=== PATIENT | female | born 1930 | race Caucasian/White ===

== ENCOUNTER → 2017-04-27 | Outpatient (CLI) | payer MEDICARE ==
[2017-04-27 18:59] LABS: ALBUMIN 3.7 GM/DL (3.2-5.2); ALBUMIN/GLOBULIN RATIO 1.32 (1.00-1.93); BILIRUBIN,TOTAL 0.4 MG/DL (0.2-1.0); CALCIUM LEVEL 8.9 MG/DL (8.8-10.2); CREATININE FOR GFR 1.7 MG/DL (0.55-1.02); GLOMERULAR FILTRATION RATE 30.5 (>32); TOTAL PROTEIN 6.5 GM/DL (6.4-8.2)
== END ==
LOC: M WUC 15:16
PROVIDERS: ATTEND Internal Medicine Cardiovascular Disease
DX: I48.2 Chronic atrial fibrillation (principal); I50.32 Chronic diastolic (congestive) heart failure; I34.0 Nonrheumatic mitral (valve) insufficiency

== ENCOUNTER → 2017-08-17 | Outpatient (CLI) | payer MEDICARE ==
--- NOTE | 2017-08-17 16:14 | REP ---
Renal ultrasound: The kidneys are in the low normal size range. The right kidney measures 9.9 x 4.5 x 4.0 cm. The left kidney measures 9.2 x 5.3 x 4.3 cm. Renal cortical echogenicity is normal bilaterally. There is no hydronephrosis on the right on the left. There are no renal calculi, masses or cysts on the right on the left. Atheromatous vascular calcifications are identified. Bladder ultrasound: The bladder is minimally distended and cannot be further evaluated. Impression: Essentially negative renal ultrasound except that the kidneys are in the low normal size range. Signed by Pritesh Kunz MD 08/17/2017 04:05 P
== END ==
LOC: M RAD 10:13
PROVIDERS: ATTEND Internal Medicine Nephrology
DX: N18.3 Chronic kidney disease, stage 3 (moderate) (principal); E11.22 Type 2 diabetes mellitus with diabetic chronic kidney disease; N25.81 Secondary hyperparathyroidism of renal origin

== ENCOUNTER → 2017-08-17 | Outpatient (CLI) | payer MEDICARE ==
--- NOTE | 2017-08-17 13:59 | REP ---
DIGITAL SCREENING MAMMOGRAM UNILATERAL: 08/17/2017. Clinical history: Annual screening examination. Status post left mastectomy. Right breast only today. Multiple prior studies. Findings: Standard two-view mammography performed with a right CC additional view with nipple in profile and a true right ML. The breasts are very dense. This limits the sensitivity of mammography. There are benign arterial calcifications in the right breast. Large coarse calcifications are present, of no clinical significance. Scattered small benign appearing calcifications are present of doubtful clinical significance. There is a surgical clip in the lower inner quadrant of the right breast from prior biopsy of microcalcifications. No new microcalcifications near that clip. Scattered benign calcifications without suspicious clusters. Impression: 1. BI-RADS/ACR category 2 mammogram. Benign finding(s). Routine annual screening mammography (for women over age 40). Stable exam This mammogram was interpreted with the aid of an FDA-approved computer-aided detection system. The patient states she/he had a clinical breast exam in 06/2017. The patient letter being requested is M1. Signed by Jeff Sparks MD 08/18/2017 07:52 P
== END ==
LOC: M RAD 10:17
PROVIDERS: ATTEND Family Medicine
DX: Z12.31 Encounter for screening mammogram for malignant neoplasm of breast (principal); Z90.12 Acquired absence of left breast and nipple

== ENCOUNTER → 2017-11-12 | Outpatient (CLI) | payer MEDICARE ==
[2017-11-12 17:44] LABS: ALBUMIN 3.6 GM/DL (3.2-5.2); ALBUMIN/GLOBULIN RATIO 1.33 (1.00-1.93); ALKALINE PHOSPHATASE 104 U/L (45-117); ALT/SGPT 17 U/L (12-78); ANION GAP 8 MEQ/L (8-16); AST/SGOT 12 U/L (7-37); BILIRUBIN,TOTAL 0.4 MG/DL (0.2-1.0); BLOOD UREA NITROGEN 45 MG/DL (7-18); CALCIUM LEVEL 8.9 MG/DL (8.8-10.2); CARBON DIOXIDE LEVEL 28 MEQ/L (21-32); CHLORIDE LEVEL 104 MEQ/L (98-107); CREATININE FOR GFR 1.68 MG/DL (0.55-1.30); GLOMERULAR FILTRATION RATE 30.8 (>32); GLUCOSE, FASTING 184 MG/DL (70-100); MAGNESIUM LEVEL 2.3 MG/DL (1.8-2.4); SODIUM LEVEL 140 MEQ/L (136-145); TOTAL PROTEIN 6.3 GM/DL (6.4-8.2)
[2017-11-12 17:48] LABS: POTASSIUM SERUM 5.5 MEQ/L (3.5-5.1)
== END ==
LOC: M WUC 14:33
DX: I50.32 Chronic diastolic (congestive) heart failure (principal); I48.2 Chronic atrial fibrillation
CPT/HCPCS: 83735

== ENCOUNTER 2017-11-19 07:34 | Day surgery (SDC) | payer MEDICARE ==
[~2017-11-19 07:34] MED LIST: PHENYLEPHRINE 2.5% OPHTH SOL 2ML OD; PROPARACAINE 0.5% OPHTH SOL 15ML OD
[2017-11-19] MEDS: OFLOXACIN 0.3 % (OCUFLOX) OPTH SOL 5ML OD ×2 (08:06)
[2017-11-19] MEDS: TROPICAMIDE 1% OPHTH SOLN 2ML OD ×2 (08:06)
[2017-11-19] MEDS ORDERED: fentaNYL 100 MCG/2 ML INJECTION (J3010) As Ordered ×2 (08:56)
[2017-11-19] MEDS ORDERED: MIDAZOLAM INJ 2 MG/2 ML VIAL (J2250) As Ordered ×2 (08:56)
[2017-11-19] MEDS: POVIDONE-IODINE 5% OPHTH PREP SOL 30ML As Ordered ×2 (09:28)
[2017-11-19] MEDS: BALANCED SALT IRRIGATION SOLUTION 500ML BAG (FOR OR EYE MACHINE) As Ordered ×2 (09:28)
[2017-11-19] MEDS: ACETYLCHOLINE OPHTH SOLN 1% 2ML (MIOCHOL-E) As Ordered ×2 (09:28)
[2017-11-19] MEDS: DUOVISC (0.50ML VISCOAT/0.55ML PROVISC) OPHTH KIT As Ordered ×2 (09:28)
[2017-11-19] MEDS: TRYPAN BLUE 0.06 % 2.25 ML OPHTH SYR (VISIONBLUE) As Ordered ×2 (09:29)
[2017-11-19] MEDS: LIDOCAINE 0.75%/EPINEPHRINE 0.025% IN BSS 1ML SYR INTRACAMERAL (OR ONLY) As Ordered (09:29)
== END 2017-11-19 10:25 | disposition home or self-care (01) ==
LOC: M SDC 07:34
DX: H25.11 Age-related nuclear cataract, right eye (principal); I10 Essential (primary) hypertension; I25.10 Atherosclerotic heart disease of native coronary artery without angina pectoris; I48.91 Unspecified atrial fibrillation; Z98.61 Coronary angioplasty status; J44.9 Chronic obstructive pulmonary disease, unspecified; E03.9 Hypothyroidism, unspecified; Z95.0 Presence of cardiac pacemaker; K21.9 Gastro-esophageal reflux disease without esophagitis; Z79.899 Other long term (current) drug therapy
CPT/HCPCS: 66984

== ENCOUNTER 2017-11-26 08:52 | Day surgery (SDC) | payer MEDICARE ==
[~2017-11-26 08:52] MED LIST changes: +MIDAZOLAM INJ 2 MG/2 ML VIAL (J2250) As Ordered; -PHENYLEPHRINE 2.5% OPHTH SOL 2ML OD; -PROPARACAINE 0.5% OPHTH SOL 15ML OD; +fentaNYL 100 MCG/2 ML INJECTION (J3010) As Ordered
[2017-11-26] MEDS: TROPICAMIDE 1% OPHTH SOLN 2ML OS (10:22)
[2017-11-26] MEDS: OFLOXACIN 0.3 % (OCUFLOX) OPTH SOL 5ML OS (10:23)
[2017-11-26] MEDS: PHENYLEPHRINE 2.5% OPHTH SOL 2ML OS (10:23)
[2017-11-26] MEDS: PROPARACAINE 0.5% OPHTH SOL 15ML OS (10:23)
[2017-11-26 10:39] LABS: BEDSIDE GLUCOSE 122 MG/DL (83-110)
[2017-11-26] MEDS: POVIDONE-IODINE 5% OPHTH PREP SOL 30ML As Ordered (11:13)
[2017-11-26] MEDS: BALANCED SALT IRRIGATION SOLUTION 500ML BAG (FOR OR EYE MACHINE) As Ordered (11:13)
[2017-11-26] MEDS: DUOVISC (0.50ML VISCOAT/0.55ML PROVISC) OPHTH KIT As Ordered (11:14)
[2017-11-26] MEDS: LIDOCAINE 0.75%/EPINEPHRINE 0.025% IN BSS 1ML SYR INTRACAMERAL (OR ONLY) As Ordered (11:14)
== END 2017-11-26 12:10 | disposition home or self-care (01) ==
LOC: M SDC 08:52
DX: H25.12 Age-related nuclear cataract, left eye (principal); I48.91 Unspecified atrial fibrillation; I11.0 Hypertensive heart disease with heart failure; E03.9 Hypothyroidism, unspecified; M19.90 Unspecified osteoarthritis, unspecified site; E78.5 Hyperlipidemia, unspecified; E11.9 Type 2 diabetes mellitus without complications; I50.30 Unspecified diastolic (congestive) heart failure; N28.9 Disorder of kidney and ureter, unspecified; R00.1 Bradycardia, unspecified; Z95.5 Presence of coronary angioplasty implant and graft; I25.10 Atherosclerotic heart disease of native coronary artery without angina pectoris; R60.0 Localized edema; Z95.0 Presence of cardiac pacemaker; M10.9 Gout, unspecified; K21.9 Gastro-esophageal reflux disease without esophagitis; D64.9 Anemia, unspecified; Z88.1 Allergy status to other antibiotic agents; Z88.8 Allergy status to other drugs, medicaments and biological substances; Z88.0 Allergy status to penicillin; Z88.7 Allergy status to serum and vaccine; Z79.899 Other long term (current) drug therapy; Z79.01 Long term (current) use of anticoagulants
CPT/HCPCS: 66984

== ENCOUNTER → 2018-01-25 | Outpatient (CLI) | payer MEDICARE ==
[2018-01-25 18:10] LABS: ALBUMIN 3.8 GM/DL (3.2-5.2); ALBUMIN/GLOBULIN RATIO 1.31 (1.00-1.93); ALKALINE PHOSPHATASE 111 U/L (45-117); ALT/SGPT 19 U/L (12-78); ANION GAP 7 MEQ/L (8-16); AST/SGOT 17 U/L (7-37); BILIRUBIN,TOTAL 0.3 MG/DL (0.2-1.0); BLOOD UREA NITROGEN 47 MG/DL (7-18); CALCIUM LEVEL 9.4 MG/DL (8.8-10.2); CARBON DIOXIDE LEVEL 29 MEQ/L (21-32); CHLORIDE LEVEL 106 MEQ/L (98-107); CREATININE FOR GFR 1.56 MG/DL (0.55-1.30); GLOMERULAR FILTRATION RATE 33.6 (>32); GLUCOSE, FASTING 118 MG/DL (70-100); MAGNESIUM LEVEL 2.3 MG/DL (1.8-2.4); POTASSIUM SERUM 4.8 MEQ/L (3.5-5.1); SODIUM LEVEL 142 MEQ/L (136-145); TOTAL PROTEIN 6.7 GM/DL (6.4-8.2)
== END ==
LOC: M WUC 15:16
DX: I50.32 Chronic diastolic (congestive) heart failure (principal); I48.2 Chronic atrial fibrillation
CPT/HCPCS: 83735

== ENCOUNTER → 2018-05-06 | Outpatient (CLI) | payer MEDICARE ==
[2018-05-06 16:20] LABS: ANION GAP 9 MEQ/L (8-16); BLOOD UREA NITROGEN 44 MG/DL (7-18); CALCIUM LEVEL 9.2 MG/DL (8.8-10.2); CARBON DIOXIDE LEVEL 29 MEQ/L (21-32); CHLORIDE LEVEL 102 MEQ/L (98-107); GLOMERULAR FILTRATION RATE 32.6 (>32); GLUCOSE, FASTING 154 MG/DL (70-100); POTASSIUM SERUM 4.9 MEQ/L (3.5-5.1); SODIUM LEVEL 140 MEQ/L (136-145)
[2018-05-06 16:21] LABS: BASO % 0.1 % (0.0-1.0); EOS # 0.4 10^3/uL (0.0-0.50); EOS % 5.8 % (0.0-3.0); HEMATOCRIT 35.5 % (36.0-47.0); HEMOGLOBIN 11.2 g/dl (12.0-15.5); IMMATURE GRANULOCYTE % 0.3 % (0-3.0); LYMPH # 1.9 10^3/uL (1.5-4.5); LYMPH % 26.8 % (24.0-44.0); MEAN CORPUSCULAR HEMOGLOBIN 31.6 pg (27.0-33.0); MEAN CORPUSCULAR HGB CONC 31.5 g/dl (32.0-36.5); MEAN CORPUSCULAR VOLUME 100.3 fl (80.0-96.0); MONO # 0.5 10^3/uL (0.0-0.8); MONO % 7.3 % (0.0-5.0); NEUTROPHILS # 4.1 10^3/uL (1.8-7.7); NEUTROPHILS % 59.7 % (36.0-66.0); PLATELET COUNT, AUTOMATED 193 10^3/uL (150-450); RED BLOOD COUNT 3.54 10^6/uL (4.00-5.40); RED CELL DISTRIBUTION WIDTH 13.6 % (11.5-14.5); WHITE BLOOD COUNT 6.9 10^3/uL (4.0-10.0)
== END ==
LOC: M WUC 11:38
DX: I50.32 Chronic diastolic (congestive) heart failure (principal); I48.2 Chronic atrial fibrillation; I44.2 Atrioventricular block, complete
CPT/HCPCS: 83735

== ENCOUNTER → 2018-12-22 | Outpatient (CLI) | payer MEDICARE ==
[~2018-12-22] MED LIST changes: +ALLO100T PO; +ATOR1TAB21; +BIOT10008 PO; +BUME1TAB3; +CARV25TA; +FERR325T16 PO; +FLUTISP; +LEVO50TA5; +MAGN1TAB26 PO; -MIDAZOLAM INJ 2 MG/2 ML VIAL (J2250) As Ordered; +MULT1TAB10 PO; +OMEP40CA2; +PRAD150C6; +PROAAER10; +RAMI1CAP22; +TRAM50TA2; +TYLE1TAB5 PO; +VITA100067 PO; -fentaNYL 100 MCG/2 ML INJECTION (J3010) As Ordered
[2018-12-22 16:53] LABS: CALCIUM LEVEL 9.5 MG/DL (8.8-10.2); CREATININE FOR GFR 1.43 MG/DL (0.55-1.30)
[2018-12-22 16:57] LABS: HEMATOCRIT 36.3 % (36.0-47.0); HEMOGLOBIN 11.4 g/dl (12.0-15.5); MEAN CORPUSCULAR HEMOGLOBIN 32.1 pg (27.0-33.0); MEAN CORPUSCULAR HGB CONC 31.4 g/dl (32.0-36.5); MEAN CORPUSCULAR VOLUME 102.3 fl (80.0-96.0); PLATELET COUNT, AUTOMATED 208 10^3/uL (150-450); RED BLOOD COUNT 3.55 10^6/uL (4.00-5.40); WHITE BLOOD COUNT 8.6 10^3/uL (4.0-10.0)
== END ==
LOC: M WUC 14:01
PROVIDERS: ATTEND Internal Medicine Cardiovascular Disease
DX: I48.0 Paroxysmal atrial fibrillation (principal)

== ENCOUNTER → 2019-01-05 | Outpatient (CLI) | payer MEDICARE ==
--- NOTE | 2019-01-05 11:47 | REP ---
Chest two views HISTORY: Preop Comparison: 01/01/2007 The lungs are clear. The cardiac silhouette is enlarged. The pulmonary vasculature is normal in appearance. Degenerative change is present in the thoracic spine. A cardiac pacemaker is present. IMPRESSION: Cardiomegaly. Electronically Signed by Aaron Eckert MD 01/05/2019 11:39 A
== END ==
LOC: M WUC 11:22
PROVIDERS: ATTEND Internal Medicine Cardiovascular Disease
DX: Z95.0 Presence of cardiac pacemaker (principal); I51.7 Cardiomegaly

== ENCOUNTER → 2019-08-01 | Outpatient (CLI) | payer MEDICARE ==
[~2019-08-01] MED LIST changes: -OMEP40CA2; +OMEP40CA97
[2019-08-01 17:57] LABS: ALBUMIN 3.7 GM/DL (3.2-5.2); BILIRUBIN,TOTAL 0.4 MG/DL (0.2-1.0); CALCIUM LEVEL 9.4 MG/DL (8.8-10.2); CREATININE FOR GFR 1.52 MG/DL (0.55-1.30); GLOMERULAR FILTRATION RATE 34.5 (>32); POTASSIUM SERUM 4.5 MEQ/L (3.5-5.1); TOTAL PROTEIN 6.8 GM/DL (6.4-8.2)
== END ==
LOC: M WUC 12:17
PROVIDERS: ATTEND Internal Medicine Cardiovascular Disease
DX: I50.32 Chronic diastolic (congestive) heart failure (principal)

== ENCOUNTER → 2019-10-03 | Outpatient (CLI) | payer MEDICARE ==
[2019-10-03 20:31] LABS: CALCIUM LEVEL 9.5 MG/DL (8.8-10.2); CREATININE FOR GFR 2.04 MG/DL (0.55-1.30); GLOMERULAR FILTRATION RATE 24.5 (>32); MAGNESIUM LEVEL 1.9 MG/DL (1.8-2.4); POTASSIUM SERUM 4.7 MEQ/L (3.5-5.1)
== END ==
LOC: M WUC 15:27
DX: I34.0 Nonrheumatic mitral (valve) insufficiency (principal)

== ENCOUNTER → 2019-10-10 | Outpatient (CLI) | payer MEDICARE ==
[2019-10-10 13:19] LABS: CALCIUM LEVEL 9.6 MG/DL (8.8-10.2); CREATININE FOR GFR 1.89 MG/DL (0.55-1.30); GLOMERULAR FILTRATION RATE 26.8 (>32); MAGNESIUM LEVEL 2.5 MG/DL (1.8-2.4); POTASSIUM SERUM 4.7 MEQ/L (3.5-5.1)
== END ==
LOC: M WUC 11:00
PROVIDERS: ATTEND Internal Medicine Cardiovascular Disease
DX: I50.32 Chronic diastolic (congestive) heart failure (principal); R06.00 Dyspnea, unspecified

== ENCOUNTER → 2019-10-17 | Outpatient (CLI) | payer MEDICARE ==
[2019-10-17 17:39] LABS: CALCIUM LEVEL 9.1 MG/DL (8.8-10.2); CREATININE FOR GFR 1.78 MG/DL (0.55-1.30); GLOMERULAR FILTRATION RATE 28.7 (>32); MAGNESIUM LEVEL 2.2 MG/DL (1.8-2.4); POTASSIUM SERUM 4.4 MEQ/L (3.5-5.1)
== END ==
LOC: M WUC 11:13
PROVIDERS: ATTEND Physician Assistant
DX: I34.0 Nonrheumatic mitral (valve) insufficiency (principal)

== ENCOUNTER → 2019-10-26 | Outpatient (CLI) | payer MEDICARE ==
[2019-10-26 16:33] LABS: CALCIUM LEVEL 9.3 MG/DL (8.8-10.2); CREATININE FOR GFR 1.9 MG/DL (0.55-1.30); GLOMERULAR FILTRATION RATE 26.6 (>32); MAGNESIUM LEVEL 2.1 MG/DL (1.8-2.4); POTASSIUM SERUM 4.3 MEQ/L (3.5-5.1)
== END ==
LOC: M WUC 12:06
PROVIDERS: ATTEND Physician Assistant
DX: I34.0 Nonrheumatic mitral (valve) insufficiency (principal)

== ENCOUNTER → 2019-11-23 | Outpatient (REF) | payer MEDICARE ==
[2019-11-23 19:24] LABS: IRON (FE) 59 UG/DL (50-170); PERCENT SATURATION 23.7 % (13.2-45.0); TOTAL IRON BINDING CAPACITY 249 UG/DL (250-450)
[2019-11-23 20:05] LABS: FOLATE > 24.0 NG/ML; VITAMIN B12 LEVEL > 2000 PG/ML
== END ==
LOC: M LAB REF 18:29
PROVIDERS: ATTEND Nurse Practitioner Family
DX: D64.9 Anemia, unspecified (principal)

== ENCOUNTER → 2020-02-02 | Outpatient (CLI) | payer MEDICARE ==
[2020-02-02 16:48] LABS: ALBUMIN 3.7 GM/DL (3.2-5.2); BILIRUBIN,TOTAL 0.3 MG/DL (0.2-1.0); CALCIUM LEVEL 9.2 MG/DL (8.8-10.2); CREATININE FOR GFR 1.89 MG/DL (0.55-1.30); GLOMERULAR FILTRATION RATE 26.8 (>32); MAGNESIUM LEVEL 2.3 MG/DL (1.8-2.4); POTASSIUM SERUM 4.8 MEQ/L (3.5-5.1); TOTAL PROTEIN 6.8 GM/DL (6.4-8.2)
== END ==
LOC: M WUC 13:35
PROVIDERS: ATTEND Internal Medicine Cardiovascular Disease
DX: I50.32 Chronic diastolic (congestive) heart failure (principal); I44.2 Atrioventricular block, complete

== ENCOUNTER → 2020-07-26 | Outpatient (CLI) | payer MEDICARE ==
[2020-07-26 16:55] LABS: ALBUMIN 3.7 GM/DL (3.2-5.2); BILIRUBIN,TOTAL 0.6 MG/DL (0.2-1.0); CALCIUM LEVEL 9.9 MG/DL (8.8-10.2); CREATININE FOR GFR 1.81 MG/DL (0.55-1.30); GLOMERULAR FILTRATION RATE 28.2 (>32); MAGNESIUM LEVEL 2.2 MG/DL (1.8-2.4); POTASSIUM SERUM 3.9 MEQ/L (3.5-5.1); TOTAL PROTEIN 7.1 GM/DL (6.4-8.2)
== END ==
LOC: M WUC 14:07
PROVIDERS: ATTEND Internal Medicine Cardiovascular Disease
DX: I50.32 Chronic diastolic (congestive) heart failure (principal)

== ENCOUNTER → 2020-09-18 | Outpatient (CLI) | payer MEDICARE ==
[2020-09-18 17:12] LABS: BILIRUBIN,TOTAL 0.5 MG/DL (0.2-1.0); CALCIUM LEVEL 9.8 MG/DL (8.8-10.2); CHOLESTEROL RISK RATIO 2.464 (<5); CREATININE FOR GFR 2.29 MG/DL (0.55-1.30); GLOMERULAR FILTRATION RATE 21.4 (>32); MAGNESIUM LEVEL 2.1 MG/DL (1.8-2.4); POTASSIUM SERUM 3.9 MEQ/L (3.5-5.1); TOTAL PROTEIN 7.1 GM/DL (6.4-8.2)
== END ==
LOC: M WUC 13:31
PROVIDERS: ATTEND Internal Medicine Cardiovascular Disease
DX: I47.2 Ventricular tachycardia (principal); E78.2 Mixed hyperlipidemia; I50.32 Chronic diastolic (congestive) heart failure

== ENCOUNTER → 2020-10-11 | Outpatient (CLI) | payer MEDICARE ==
[2020-10-11 16:44] LABS: CALCIUM LEVEL 9.9 MG/DL (8.8-10.2); CREATININE FOR GFR 2.25 MG/DL (0.55-1.30); GLOMERULAR FILTRATION RATE 21.9 (>32); MAGNESIUM LEVEL 1.9 MG/DL (1.8-2.4); POTASSIUM SERUM 4.4 MEQ/L (3.5-5.1)
== END ==
LOC: M WUC 13:28
PROVIDERS: ATTEND Internal Medicine Cardiovascular Disease
DX: I44.2 Atrioventricular block, complete (principal); I50.42 Chronic combined systolic (congestive) and diastolic (congestive) heart failure

== ENCOUNTER → 2020-12-26 | Outpatient (CLI) | payer MEDICARE ==
[~2020-12-26] MED LIST changes: +FERR324T21 PO; -FERR325T16 PO
[2020-12-26 13:10] LABS: MAGNESIUM LEVEL 2.2 MG/DL (1.8-2.4)
== END ==
LOC: M WUC 11:36
PROVIDERS: ATTEND Internal Medicine Cardiovascular Disease
DX: I50.42 Chronic combined systolic (congestive) and diastolic (congestive) heart failure (principal)

== ENCOUNTER → 2021-02-14 | Outpatient (REF) | payer MEDICARE ==
[2021-02-14 17:23] LABS: PERCENT SATURATION 25.6 % (13.2-45.0)
== END ==
LOC: M LAB REF 16:40
PROVIDERS: ATTEND Internal Medicine Nephrology
DX: D50.9 Iron deficiency anemia, unspecified (principal)

== ENCOUNTER → 2021-04-25 | Outpatient (CLI) | payer MEDICARE ==
[~2021-04-25] MED LIST changes: +OMEP40CA4; -OMEP40CA97
--- NOTE | 2021-04-25 12:02 | REP ---
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 COMPARISON: 01/05/2019 TECHNIQUE: PA and lateral views FINDINGS: Postoperative changes after left mastectomy an axillary dissection dated granulomas in the right upper lobe. Lungs free of active parenchymal disease. Hiatal hernia. Dual pacing leads in place. Osteoporotic kyphotic thoracic spine. A left atrial appendage closure device is in place. IMPRESSION: No active process. <Electronically signed by Rafa Sims > 04/25/21 [id number]
== END ==
LOC: M WUC 10:28
PROVIDERS: ATTEND Family Medicine
DX: R05 Cough (principal); I25.10 Atherosclerotic heart disease of native coronary artery without angina pectoris; I50.32 Chronic diastolic (congestive) heart failure

== ENCOUNTER → 2021-06-07 | Outpatient (CLI) | payer MEDICARE ==
[2021-06-07 16:50] LABS: CALCIUM LEVEL 9.8 MG/DL (8.8-10.2); CREATININE FOR GFR 1.91 MG/DL (0.55-1.30); GLOMERULAR FILTRATION RATE 26.4 (>32); MAGNESIUM LEVEL 1.8 MG/DL (1.8-2.4); POTASSIUM SERUM 4.1 MEQ/L (3.5-5.1)
== END ==
LOC: M WUC 13:58
PROVIDERS: ATTEND Internal Medicine Cardiovascular Disease
DX: I48.91 Unspecified atrial fibrillation (principal); I50.42 Chronic combined systolic (congestive) and diastolic (congestive) heart failure

== ENCOUNTER → 2021-06-20 | Outpatient (REF) | payer MEDICARE | LOC: M LAB REF 12:48 | PROVIDERS: ATTEND Internal Medicine Nephrology | DX: E83.42 Hypomagnesemia (principal) ==

== ENCOUNTER → 2021-08-12 | Outpatient (CLI) | payer MEDICARE ==
[2021-08-12 17:02] LABS: CALCIUM LEVEL 9.5 MG/DL (8.8-10.2); CREATININE FOR GFR 2.04 MG/DL (0.55-1.30); GLOMERULAR FILTRATION RATE 24.5 (>32); POTASSIUM SERUM 3.9 MEQ/L (3.5-5.1)
== END ==
LOC: M WUC 14:45
PROVIDERS: ATTEND Internal Medicine Cardiovascular Disease
DX: I50.42 Chronic combined systolic (congestive) and diastolic (congestive) heart failure (principal)

== ENCOUNTER → 2021-08-23 | Outpatient (REF) | payer MEDICARE ==
[2021-08-23 16:14] LABS: CREATININE FOR GFR 1.65 MG/DL (0.55-1.30); GLOMERULAR FILTRATION RATE 31.3 (>32); MAGNESIUM LEVEL 1.8 MG/DL (1.8-2.4)
== END ==
LOC: M WUC 15:33
PROVIDERS: ATTEND Internal Medicine Cardiovascular Disease
DX: I50.42 Chronic combined systolic (congestive) and diastolic (congestive) heart failure (principal)

== ENCOUNTER → 2021-11-25 | Outpatient (CLI) | payer MEDICARE ==
[2021-11-25 16:27] LABS: BILIRUBIN,TOTAL 0.4 MG/DL (0.2-1.0); CALCIUM LEVEL 9.9 MG/DL (8.8-10.2); CREATININE FOR GFR 2.41 MG/DL (0.55-1.30); GLOMERULAR FILTRATION RATE 20.1 (>32); MAGNESIUM LEVEL 2.4 MG/DL (1.8-2.4); POTASSIUM SERUM 4.3 MEQ/L (3.5-5.1); TOTAL PROTEIN 6.9 GM/DL (6.4-8.2)
== END ==
LOC: M WUC 13:49
PROVIDERS: ATTEND Internal Medicine Cardiovascular Disease
DX: I47.2 Ventricular tachycardia (principal); E78.2 Mixed hyperlipidemia; I50.42 Chronic combined systolic (congestive) and diastolic (congestive) heart failure

== ENCOUNTER → 2021-12-09 | Outpatient (CLI) | payer MEDICARE ==
[2021-12-09 14:58] LABS: CALCIUM LEVEL 9.3 MG/DL (8.8-10.2); CREATININE FOR GFR 1.97 MG/DL (0.55-1.30); GLOMERULAR FILTRATION RATE 25.4 (>32); MAGNESIUM LEVEL 2.2 MG/DL (1.8-2.4); POTASSIUM SERUM 3.9 MEQ/L (3.5-5.1)
== END ==
LOC: M CARPUL 13:22
PROVIDERS: ATTEND Internal Medicine Cardiovascular Disease
DX: I34.0 Nonrheumatic mitral (valve) insufficiency (principal); I48.91 Unspecified atrial fibrillation; I50.42 Chronic combined systolic (congestive) and diastolic (congestive) heart failure

== ENCOUNTER → 2022-02-17 | Outpatient (CLI) | payer MEDICARE ==
[2022-02-17 17:51] LABS: CALCIUM LEVEL 9.7 MG/DL (8.8-10.2); CREATININE FOR GFR 2.53 MG/DL (0.55-1.30); MAGNESIUM LEVEL 2.6 MG/DL (1.8-2.4); POTASSIUM SERUM 4.4 MEQ/L (3.5-5.1); THYROID STIMULATING HORMONE 6.17 uIU/ML (0.358-3.740)
== END ==
LOC: M LAB 16:34
PROVIDERS: ATTEND Physician Assistant
DX: I50.9 Heart failure, unspecified (principal); I48.91 Unspecified atrial fibrillation

== ENCOUNTER → 2022-03-19 | Outpatient (CLI) | payer MEDICARE ==
[2022-03-19 16:21] LABS: BASO % 0.5 % (0.0-1.0); EOS # 0.4 10^3/uL (0.0-0.5); EOS % 6.3 % (0.0-3.0); HEMATOCRIT 32.3 % (36.0-47.0); HEMOGLOBIN 9.7 g/dl (12.0-15.5); LYMPH # 1.3 10^3/uL (1.5-5.0); LYMPH % 21.1 % (24.0-44.0); MEAN CORPUSCULAR HEMOGLOBIN 30.9 pg (27.0-33.0); MEAN CORPUSCULAR VOLUME 102.9 fl (80.0-96.0); MONO # 0.5 10^3/uL (0.0-0.8); MONO % 7.7 % (2.0-8.0); NEUTROPHILS # 4.1 10^3/uL (1.5-8.5); NEUTROPHILS % 64.1 % (36.0-66.0); PLATELET COUNT, AUTOMATED 166 10^3/uL (150-450); RED BLOOD COUNT 3.14 10^6/uL (4.00-5.40); WHITE BLOOD COUNT 6.4 10^3/uL (4.0-10.0)
[2022-03-19 16:52] LABS: CALCIUM LEVEL 9.8 MG/DL (8.8-10.2); CREATININE FOR GFR 2.07 MG/DL (0.55-1.30); POTASSIUM SERUM 4.7 MEQ/L (3.5-5.1)
== END ==
LOC: M WUC 10:27
PROVIDERS: ATTEND Internal Medicine Cardiovascular Disease
DX: I25.10 Atherosclerotic heart disease of native coronary artery without angina pectoris (principal); I50.42 Chronic combined systolic (congestive) and diastolic (congestive) heart failure

== ENCOUNTER → 2022-04-04 | Outpatient (CLI) | payer MEDICARE ==
[2022-04-04 18:30] LABS: CALCIUM LEVEL 9.9 MG/DL (8.8-10.2); CREATININE FOR GFR 2.25 MG/DL (0.55-1.30); GLOMERULAR FILTRATION RATE 21.8 (>32); MAGNESIUM LEVEL 1.8 MG/DL (1.8-2.4)
== END ==
LOC: M WUC 13:06
PROVIDERS: ATTEND Physician Assistant
DX: I50.9 Heart failure, unspecified (principal); I48.91 Unspecified atrial fibrillation

== ENCOUNTER → 2022-04-22 | Outpatient (CLI) | payer MEDICARE ==
[2022-04-22 18:12] LABS: CALCIUM LEVEL 9.8 MG/DL (8.8-10.2); CREATININE FOR GFR 1.88 MG/DL (0.55-1.30); GLOMERULAR FILTRATION RATE 26.8 (>32); MAGNESIUM LEVEL 1.8 MG/DL (1.8-2.4); POTASSIUM SERUM 3.7 MEQ/L (3.5-5.1)
== END ==
LOC: M WUC 13:54
PROVIDERS: ATTEND Physician Assistant
DX: I50.9 Heart failure, unspecified (principal); I48.91 Unspecified atrial fibrillation